=== PATIENT | female | born 1950 | race Caucasian/White ===

== ENCOUNTER 2016-07-10 03:14 | Emergency (ER) | payer MEDICARE ==
[~2016-07-10] VITALS: Ht 162.6 cm; Wt 75.0 kg
[~2016-07-10 03:14] MED LIST: KRIL500C PO; LEVO88TA4 PO; MULT-1018 PO; VITA-219 PO
[2016-07-10 03:20] VITALS: BP 128/90; PULSE 86; RESP 16; O2SAT 98
[2016-07-10] MEDS ORDERED: 0.9% Sodium Chloride 1,000 ML IV ONE (03:44)
--- NOTE | 2016-07-10 03:44 | ED.REPORT ---
HPI-Abd Pain F 40 and Over Date of Service Jul 10, 2016 ED Provider: Dalton Larry MD A 65 year old female with a history of cholecystectomy and back injury presents to the ED complaining of left sided flank pain. This is accompanied by urinary frequency, nausea, and vomiting. These symptoms began four days ago, and she believes that they are due to a kidney stone. The pt denies dysuria. Nursing Notes Stated Complaint: LOWER BACK PAIN, NAUSEA Chief Complaint: Female Abdominal Pain Nursing Notes Reviewed: Yes Allergies: Coded Allergies: No Known Allergies (Verified Allergy, 11/04/13) Scheduled Krill Oil (Krill Oil) 500 Mg Capsule Unknown Dose PO DAILY Levothyroxine (Levothyroxine) 88 Mcg Tablet 88 MCG PO DAILY Vitamin B Complex (B Complex) 1 Each Tablet 1 EACH PO DAILY Scheduled PRN Hydroxyzine Pamoate (HydrOXYzine Pamoate) 25 Mg Capsule 25-50 MG PO HS PRN PRN For Insomnia Miscellaneous Medications Multivitamin (Multi Vitamin Daily) 1 Each Tablet 1 EACH PO General Time Seen by MD: 03:39 Chief Complaint Flank pain left Hx Obtained From: Patient Arrived By: Walk-in Sudden in Onset?: No Onset Occurred: 4 days ago Symptom Duration: Since onset Recent Healthcare: Recent doctor visit Similar Sx Previous: No Past Medical History Past Medical History ulcer heartburn skin cancer back injury Past Surgical History bilateral foot ectopic Reports: Cataract surgery, Cholecystectomy Smoking History Current Every Day Smoker Social History 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 Physical Exam Vital Signs Vital Signs (First) Date Time Temp Pulse Resp B/P Pulse Ox O2 Delivery O2 Flow Rate FiO2 07/10/16 03:20 36.1 86 16 128/90 98 Room Air Initial VS: Reviewed, Vital signs normal General/Constitutional: Awake, Alert hard of hearing Respiratory / Chest: Atraumatic, Breath sounds NL, Breath sounds = bilat, No respiratory distress Cardiovascular: Heart rate NL, Regular rhythm, Heart sounds NL Abdomen: Atraumatic, Soft, Non-tender Back: Atraumatic left sciatic notch and left posterior hip tenderness Head / Eyes: Atraumatic, Normocephalic, PERRL, EOMI ENT: Atraumatic, Airway patent, Mucous membranes moist Skin: Atraumatic, Color NL, No rash, Warm, Dry Neurologic: Oriented X3, Speech NL, No motor deficits, No sensory deficits Neck: Atraumatic, Supple, Full range of motion Upper Extremity / MS: Atraumatic, Full range of motion Lower Extremity / Pelvis / MS: Atraumatic, Full range of motion Psychiatric: Affect NL, Mood NL Interpretation & Diagnostics Lab Results Interpretation Result Diagram: 07/10/16 0400 07/10/16 0400 Test 07/10/16 04:00 White Blood Count 12.7th/mm3 (3.8-10.1) Red Blood Count 4.59mil/mm3 (3.90-5.20) Hemoglobin 14.5g/dL (12.0-15.6) Hematocrit 41.7% (35.0-46.0) Mean Corpuscular Volume 90.8fL (81-100) Mean Corpuscular Hemoglobin 31.6pg (27.0-35.0) Mean Corpuscular Hemoglobin Concent 34.8% (32.0-37.0) Red Cell Distribution Width 13.5% (12.3-15.4) Platelet Count 357bil/L (150-400) Neutrophils (%) (Auto) 54.8% (40-74) Lymphocytes (%) (Auto) 34.0% (14-46) Monocytes (%) (Auto) 8.4% (4-12) Eosinophils (%) (Auto) 1.9% (0-5) Basophils (%) (Auto) 0.6% (0-3) Prothrombin Time 9.1sec (8.1-12.5) Prothromb Time International Ratio 0.85ratio Urine Color Yellow (YELLOW) Urine Appearance Clear (CLEAR,HAZY) Urine pH 7.0 (5.0-8.0) Urine Specific [place] 1.010 (1.003-1.035) Urine Protein Negativemg/dL (NEG,TRACE) Urine Glucose (UA) Negativemg/dL (NEGATIVE) Urine Ketones Negativemg/dL (NEGATIVE) Urine Occult Blood Trace (NEGATIVE) Urine Nitrite Negative (NEGATIVE) Urine Bilirubin Negative (NEGATIVE) Urine Urobilinogen Normalmg/dL (NORMAL) Urine Leukocyte Esterase Small (NEGATIVE) Urine RBC 3-10/hpf (0-2) Urine WBC 6-10/hpf (0-5) Urine Epithelial Cells Moderate/hpf (NONE-MOD) Urine Crystals None seen (NONE SEEN) Urine Bacteria Moderate/hpf (NONE-FEW) Urine Hyaline Casts None/lpf (NONE) Urine Granular Casts None seen (NONE SEEN) Urine Waxy Casts None seen (NONE SEEN) Urine Red Blood Cell Casts None seen (NONE SEEN) Urine White Blood Cell Casts None seen (NONE SEEN) Urine Mucus Present (None Seen) Urine Trichomonas None seen (NONE SEEN) Urine Yeast None (NONE SEEN) Urine Culture Reflexed Indicated Sodium Level 132mEq/L (134-144) Potassium Level 4.1mEq/L (3.5-5.2) Chloride Level 95mEq/L (97-108) Carbon Dioxide Level 23mmol/L (18-29) Blood Urea Nitrogen 11mg/dL (8-27) Creatinine 0.82mg/dL (0.57-1.00) Estimat Glomerular Filtration Rate 100mL/min (>59) Glucose Level 98mg/dL (60-99) Calcium Level 9.5mg/dL (8.5-10.1) Magnesium Level 2.0mg/dL (1.6-2.6) Total Bilirubin 0.6mg/dL (0.0-1.2) Aspartate Amino Transf (AST/SGOT) 20U/L (0-50) Alanine Aminotransferase (ALT/SGPT) 15U/L (0-32) Alkaline Phosphatase 74U/L (25-165) Total Protein 7.7g/dL (6.4-8.4) Albumin 4.1g/dL (3.4-5.0) Lipase 32U/L (13-60) Lab Results Interpretation: Mild white blood count elevation Re-Eval/Medical Decision Med Decision/Clinical Course 65-year-old female with left low back.. This appears from history and physical to be musculoskeletal. Labs are normal. Urine culture is pending. I see no indication at this time for more advanced imaging. Ibuprofen for a few days. Hydroxyzine for sleep. Follow up with primary doctor in 3-5 days. Source of Hx: Old records Re-Evaluation/Progress : Time of Eval: 06:26 Patient Status: Condition improved Re-Evaluation/Progress Note: Pt rechecked, who is feeling significantly better. Lab results, diagnosis, and the plan for discharge are discussed. The pt understands and agrees with the plan. All questions are addressed at this time. Counseled Regarding: Diagnosis, Lab results, Need for follow-up, When/why to return to ED Discharge & Departure Primary Impression: Left sided sciatica Disposition: Home Discharge Condition All VS Reviewed: Yes Condition: Stable Patient Instructions: Sciatica (ED) Additional Instructions: Your labs are all reassuring, no evidence of kidney disease. There are a few white cells in your urine but the specimen appears contaminated by vaginal mucus. We will contact you if any bacteria grows in the culture. The location of this pain would indicate that it's musculoskeletal in origin. Recommend ibuprofen 400 mg 3 times daily for a few days. Hydroxyzine 25-50 mg at bedtime to help you sleep for a few days. Based on your presentation and exam I do not suspect serious illness at this time. Referrals: Eufemia Johnson MD (PCP) [facility]io[facility] Attestation Portions of this note were transcribed by Daniel Knight. I, Dr. Larry personally performed the history, physical exam and medical decision-making; I reviewed and confirmed the accuracy of the information in the transcribed note. Signed by: Jean Marie Hernandez, 07/10/2016 and 06:59. copies to: Eufemia Johnson MD, Howard L MD Jul 10, 2016 03:44 DANIEL KNIGHT Jul 10, 2016 04:10
[2016-07-10] MEDS ORDERED: Ondansetron 2 mg/mL 2 mL Inj IVPUSH PRN (03:45)
[2016-07-10] MEDS: HYDROmorphone 0.5 mg/0.5 mL iSecure Syringe IVPUSH PRN ×3 (04:08→04:59)
[2016-07-10 04:19] LABS: BASOPHILS % (AUTO) 0.6 % (0-3); EOSINOPHILS % (AUTO) 1.9 % (0-5); MONOCYTES % (AUTO) 8.4 % (4-12); Mean Corpuscular Hemoglobin 31.6 pg (27.0-35.0); Mean Corpuscular Volume 90.8 fL (81-100); NEUTROPHILS % (AUTO) 54.8 % (40-74); Platelet Count 357 bil/L (150-400)
[2016-07-10] MEDS ORDERED: Ketorolac 15 mg/mL Inj IVPUSH ONE (04:35)
[2016-07-10 04:40] LABS: INR 0.85 ratio
[2016-07-10 04:58] LABS: APPEARANCE,URINE CLEAR (CLEAR,HAZY); COLOR,URINE YELLOW (YELLOW); OCCULT BLOOD,URINE TRACE (NEGATIVE); UROBILINOGEN,URINE NORMAL (NORMAL)
[2016-07-10] MEDS ORDERED: HYDR-3797 PO (06:53)
[2016-07-10 07:10] VITALS: BP 128/90; PULSE 86; RESP 16; O2SAT 98
== END 2016-07-10 07:11 | disposition home or self-care (01) ==
LOC: SED 03:14
DX: M54.32 Sciatica, left side (principal); R11.2 Nausea with vomiting, unspecified; Z87.828 Personal history of other (healed) physical injury and trauma
CPT/HCPCS: 36415; 80053; 81000; 83690; 83735; 85025; 85610; 87086; 87088; 96361; 96374; 96375; 96376; 99285; J1170; J1885; J2405; J7030